=== PATIENT | female | born 1975 | race Caucasian/White ===

== ENCOUNTER 2017-01-30 06:52 | Day surgery (SDC) | payer BC ==
[2017-01-30] VITALS (7 sets, daily range): BP systolic 136–159; BP diastolic 72–86
[~2017-01-30] VITALS: Ht 160 cm; Wt 54.4 kg
[~2017-01-30 06:52] MED LIST: CELE10TA PO; CELE20TA PO; TRIA0.027 EXT; XANA1TAB2 PO; ZOFR20TA PO; ZOLP6.25 PO
[2017-01-30] MEDS ORDERED: LR 1,000 ML IV ONE (07:15)
[2017-01-30 07:26] LABS: MEAN CORPUSCULAR HEMOGLOBIN 28.8 pg (27.0-33.0); MEAN CORPUSCULAR HGB CONC 32.9 g/dl (32.0-36.5); MEAN CORPUSCULAR VOLUME 87.5 fl (80.0-96.0); RED CELL DISTRIBUTION WIDTH 16.3 % (11.5-14.5); WHITE BLOOD COUNT 3.6 K/mm3 (4.0-10.0)
[2017-01-30 07:37] LABS: CONTROL LINE HCG INT CTR LINE PRESENT
[2017-01-30] MEDS ORDERED: dexameTHASONE 4 MG/ML 1ML VIAL (J1100) As Ordered ONE (07:47)
[2017-01-30] MEDS ORDERED: ROCURONIUM BROMIDE 50 MG/5 ML VIAL/SYRINGE As Ordered ONE (07:47)
[2017-01-30] MEDS ORDERED: ONDANSETRON 4MG/2ML VIAL (J2405) As Ordered ONE (07:47)
[2017-01-30] MEDS ORDERED: PROPOFOL 200 MG/20 ML VIAL As Ordered ONE (07:47)
[2017-01-30] MEDS ORDERED: GLYCOPYRROLATE INJ 0.2 MG/ML 2 ML VIAL As Ordered ONE (07:47)
[2017-01-30] MEDS ORDERED: NEOSTIGMINE 1MG/ML 5 ML SYRINGE (J2710) As Ordered ONE (07:47)
[2017-01-30] MEDS ORDERED: LIDOCAINE 2% INJ 100 MG/5 ML SDV (FOR ANES.) As Ordered ONE (07:47)
[2017-01-30] MEDS ORDERED: MIDAZOLAM INJ 2 MG/2 ML VIAL (J2250) As Ordered ONE (07:48)
[2017-01-30] MEDS ORDERED: HYDROmorphone HCL 2 MG/ML 1ML VIAL (J1170) As Ordered ONE (07:48)
[2017-01-30] MEDS ORDERED: fentaNYL 100 MCG/2 ML INJECTION (J3010) As Ordered ONE (07:48)
[2017-01-30] MEDS ORDERED: SCOPOLAMINE 1.5 MG TRANSDERMAL TOP ONE (08:00)
[2017-01-30] MEDS ORDERED: ceFAZolin 2 GM/D5W 50 ML IV BAG (J0690) As Ordered ONE (08:38)
[2017-01-30] MEDS ORDERED: MORPHINE 10 MG/ML 1ML VIAL As Ordered ONE (09:03)
[2017-01-30] MEDS ORDERED: MORPHINE 1MG/ML IN 0.9% NACL 100ML IV BAG As Ordered ONE (10:23)
[2017-01-30] MEDS: MORPHINE 2 MG/ML 1ML SYRINGE IV PRN ×2 (10:28→10:45)
[2017-01-30] MEDS ORDERED: NALBUPHINE HCL 10 MG/ML AMP (J2300) IV PRN (10:30)
[2017-01-30] MEDS ORDERED: EPIDURAL/PCA KEYS XX PRN (10:30)
[2017-01-30] MEDS ORDERED: LR 1,000 ML IV SCH (10:30)
[2017-01-30] MEDS ORDERED: MORPHINE 1MG/ML IN 0.9% NACL 100ML IV BAG IV PRN (10:30)
[2017-01-30] MEDS ORDERED: diphenhydrAMINE INJ 50MG/ML VIAL (J1200) IV PRN (10:30)
[2017-01-30] MEDS ORDERED: ONDANSETRON 4MG/2ML VIAL (J2405) IV PRN (10:30)
[2017-01-30] MEDS ORDERED: NALOXONE INJ 0.4 MG/1 ML VIAL (J2310) IV PRN (10:30)
[2017-01-30] MEDS: LR 1,000 ML IV SCH ×2 (11:30→18:05)
--- NOTE | 2017-01-30 14:15 | RO ---
DATE OF PROCEDURE: 01/30/2017 PREPROCEDURE DIAGNOSES/INDICATION FOR SURGERY: Dysmenorrhea, menorrhagia, failed conservative effort. POSTPROCEDURE DIAGNOSES: Dysmenorrhea, menorrhagia, failed conservative effort. PROCEDURE: Total vaginal hysterectomy with bilateral salpingectomy and removal of [place] clips. SURGEON: Angela Saravia MD ENDOCRINOLOGY SPECIALIST: Radha Morfin NP ANESTHESIA: General endotracheal anesthesia. DESCRIPTION OF PROCEDURE: Wendy was brought to the operating room where sufficient general endotracheal anesthesia was induced. Then she was prepped, draped and positioned in the usual sterile fashion with the weighted speculum placed, the cervix grasped with single tooth tenacula. A circumferential incision was made around the base of the cervix. The cardinal ligaments were isolated, clamped, transected and ligated using the [place] clamps, which were used throughout, and #0 Vicryl suture, which was used throughout. The peritoneal reflection was then entered posteriorly and the uterosacral ligaments were bilaterally clamped, transected and ligated. The dissection was continued anteriorly to create the bladder flap and then the uterine vasculature was clamped, transected and ligated in a progressive fashion along the lateral aspect of the uterus. The right fallopian tube was left attached. The broad ligament and uteroovarian suspensory ligament and tube on the left side was clamped, transected, and ligated so that we could deliver the uterus out of the way. Then the round ligament and uteroovarian suspensory ligament were clamped, transected and ligated on the left. The pedicle of the tube was carefully clamped in several progressive steps along the right side to deliver the tube with the attached [place] clip intact. The pedicles were carefully oversewn and good hemostasis was resulting. Attention was then turned back to the left tube, which was carefully held under traction with [place] clamps, and the pedicles carefully clamped, transected and ligated, again delivery the entire tube and the [place] clip. With the removal of the uterus and both tubes and of course the [place] clip as well completed, pedicles were carefully examined, evaluated. Good hemostasis was confirmed. An angle stitch of #0 Vicryl were taken at the cuff. The uterosacrals were of course secured into the closure and the cuff was then closed using a running lock stitch of #0 Vicryl with good approximation and hemostasis achieved. The procedure was then ended. Estimated blood loss maybe 30 mL. Fluid replacement was crystalloid. Complications: None. Condition and Disposition: Wendy tolerated the procedure well and was recovering in the recovery room in good condition.
[2017-01-30] MEDS ORDERED: IBUPROFEN 600 MG TAB PO PRN (18:00)
[2017-01-30] MEDS ORDERED: ALPRAZolam 0.5 MG TAB PO ONE (18:15)
[2017-01-30] MEDS: ONDANSETRON 4 MG TAB (S0181) PO PRN (20:34)
[2017-01-31] VITALS: BP 140/94
[2017-01-31] MEDS: LR 1,000 ML IV SCH ×2 (00:57→09:47)
[2017-01-31 02:00] VITALS: BP 141/79
[2017-01-31] MEDS: ONDANSETRON 4 MG TAB (S0181) PO PRN (05:38)
[2017-01-31 05:57] LABS: MEAN CORPUSCULAR HEMOGLOBIN 28.6 pg (27.0-33.0); MEAN CORPUSCULAR HGB CONC 32.5 g/dl (32.0-36.5); RED CELL DISTRIBUTION WIDTH 16.3 % (11.5-14.5); WHITE BLOOD COUNT 11.2 K/mm3 (4.0-10.0)
[2017-01-31 06:00] VITALS: BP 157/81
[2017-01-31] MEDS ORDERED: NORCO, ANEXSIA 5/325MG TABLET (HYDROcodone/ACETAMINOPHEN) PO PRN (06:00)
[2017-01-31] MEDS ORDERED: ONDANSETRON 4MG/2ML VIAL (J2405) IV ONE (06:30)
[2017-01-31] MEDS ORDERED: CitaloPRAM (CeleXA) 20 MG TAB PO SCH (09:00)
[2017-01-31 10:00] VITALS: BP 133/67
[2017-01-31] MEDS ORDERED: MOTR200T44 PO (13:23)
[2017-01-31] MEDS ORDERED: NORC1TAB4 PO (13:23)
== END 2017-01-31 14:35 | disposition home or self-care (01) ==
LOC: M SDC 06:52 → M MSPAV 12:05 → M SDC 01-31 14:35
PROVIDERS: ATTEND Obstetrics & Gynecology
DX: N94.6 Dysmenorrhea, unspecified (principal); N92.0 Excessive and frequent menstruation with regular cycle; F41.9 Anxiety disorder, unspecified; D64.9 Anemia, unspecified; K21.9 Gastro-esophageal reflux disease without esophagitis; G43.909 Migraine, unspecified, not intractable, without status migrainosus; Z87.440 Personal history of urinary (tract) infections; Z79.899 Other long term (current) drug therapy; Z88.8 Allergy status to other drugs, medicaments and biological substances; Z88.1 Allergy status to other antibiotic agents; Z88.5 Allergy status to narcotic agent; Z88.0 Allergy status to penicillin; Z88.2 Allergy status to sulfonamides; Z87.891 Personal history of nicotine dependence
CPT/HCPCS: 36415; 58262; 84703; 85027; 86850; 86870; 86900; 86901; 88307; 96361; 96374; 96375; J0690; J1100; J1170; J2250; J2300; J2405; J2710; J3010